=== PATIENT | male | born 1960 | race Caucasian/White ===

== ENCOUNTER 2019-10-04 10:13 | Day surgery (SDC) | payer BC, SELFPAY ==
[2019-10-02 11:45] LABS: BILIRUBIN,URINE NEGATIVE (NEGATIVE); BLOOD, URINE TRACE (NEGATIVE); CLARITY/URINE CLEAR (CLEAR); COLOR,URINE YELLOW (YELLOW); GLUCOSE,URINE NEGATIVE (NEGATIVE); KETONES,URINE NEGATIVE (NEGATIVE); LEUKOCYTE ESTERASE ,URINE NEGATIVE (NEGATIVE); NITRITE, URINE NEGATIVE (NEGATIVE); PH,URINE 6.5 (5.0-8.0); PROTEIN URINE NEGATIVE (NEGATIVE); UROBILINOGEN,URINE 0.2 (0.2-1.0)
[2019-10-02 11:50] LABS: BASOPHILS % (AUTO) 0.3 % (0.0-2.0); EOSINOPHILS # (AUTO) 0.2 K/uL (0.0-0.4); EOSINOPHILS % (AUTO) 3.7 % (0.0-4.0); HEMATOCRIT 35.7 % (36-54); HEMOGLOBIN 12.2 g/dL (14.0-18.0); LYMPHOCYTES # (AUTO) 0.9 K/uL (1.0-5.5); LYMPHOCYTES % (AUTO) 18.4 % (20.5-51.5); MEAN CORPUSCULAR HEMOGLOBIN 29 pg (27-31); MEAN CORPUSCULAR HGB CONC 34 % (32-36); MEAN CORPUSCULAR VOLUME 85 fL (79.0-98.0); MONOCYTES # (AUTO) 0.3 K/uL (0.0-1.0); MONOCYTES % (AUTO) 6.7 % (1.7-9.3); NEUTROPHILS # (AUTO) 3.5 K/uL (1.8-7.7); NEUTROPHILS % (AUTO) 70.9 % (40.0-70.0); PLATELET COUNT (AUTO) 214 K/uL (130-430); RED BLOOD CELL COUNT(AUTO) 4.19 MIL/uL (4.2-6.2); WHITE BLOOD COUNT (AUTO) 4.9 K/uL (4.8-10.8)
[2019-10-02 12:00] LABS: BACTERIA,URINE None Seen /HPF (None Seen); RBC,URINE 0-3 /HPF (0-3); WBC,URINE 0-3 /HPF (0-3)
[2019-10-02 12:01] LABS: CALCIUM OXALATE CRYSTALS,UR None Seen /HPF (None Seen); CALCIUM PHOSPHATE CRYSTALS,UR None Seen /HPF (None Seen); COARSE GRANULAR CASTS,URINE None Seen /LPF (None Seen); FINE GRANULAR CASTS,URINE None Seen /LPF (None Seen); HYALINE CASTS, URINE None Seen /LPF (None Seen); MUCUS,URINE None Seen /LPF (None Seen); OTHER CASTS, URINE None Seen /LPF (None Seen); OTHER CRYSTALS,URINE None Seen /HPF (None Seen); TRICHOMONAS,URINE None Seen /HPF (None Seen); TRIPLE PHOSPHATE CRYSTAL,UR None Seen /HPF (None Seen); URIC ACID CRYSTALS,URINE None Seen /HPF (None Seen); URINE AMORPHOUS PHOSPHATES None Seen /HPF (None Seen); URINE AMORPHOUS URATE None Seen /HPF (None Seen); WAXY CASTS,URINE None Seen /LPF (None Seen); YEAST,URINE None Seen /HPF (None Seen)
[2019-10-02 12:02] LABS: INR 1.1 (0.80-1.20); PROTHROMBIN TIME 10.8 SECS (9.5-12.5)
[2019-10-02 12:04] LABS: CALCIUM 8.5 mg/dL (8.4-11.0); CREATININE 1.12 mg/dL (0.55-1.30)
[~2019-10-04] VITALS: Ht 175.3 cm; Wt 97.5 kg
[2019-10-04] MEDS ORDERED: LR 1,000 ML IV SCH (13:05)
[2019-10-04] MEDS ORDERED: SEVOFLURANE 15 MIN GAS INH ONE (13:10)
[2019-10-04] MEDS ORDERED: SUCCINYLCHOLINE CHLORIDE 20 MG/ML(QUELICIN) ONE (13:10)
[2019-10-04] MEDS ORDERED: PROPOFOL 200MG/ 20ML VIAL (DIPRIVAN) IV ONE (13:10)
[2019-10-04] MEDS ORDERED: KETOROLAC TROMETHAMINE 30 MG VIAL ONE (13:10)
[2019-10-04] MEDS ORDERED: fentaNYL CITRATE/PF 100 MCG/2 ML AMP ONE (13:10)
[2019-10-04] MEDS ORDERED: LR 1,000 ML IV.SOLN IV ONE (13:10)
[2019-10-04] MEDS ORDERED: NS IRRIG SOLN 5000 ML IR ONE (13:10)
[2019-10-04] MEDS ORDERED: ONDANSETRON HCL 4 MG/2 ML VIAL ONE (13:10)
[2019-10-04] MEDS ORDERED: MIDAZOLAM HCL 5 MG/ML VIAL (VERSED) IV ONE (13:10)
[2019-10-04] MEDS ORDERED: MEPERIDINE HCL/PF 25 MG/ML DISP.SYRIN IVP PRN (13:15)
[2019-10-04] MEDS ORDERED: HYDROmorphone 1 MG INJ. 1 MG/ML AMPUL IVP PRN (13:15)
[2019-10-04] MEDS ORDERED: HYDROmorphone 2 MG/ML VIAL IVP PRN ×2 (13:15)
[2019-10-04 15:40] VITALS: BP_SYST 111
== END 2019-10-04 15:20 | disposition home or self-care (01) ==
LOC: SDS 10:13 → SMU 10:14 → SDS 15:20
PROVIDERS: ATTEND Orthopaedic Surgery
DX: G56.01 Carpal tunnel syndrome, right upper limb (principal); E11.9 Type 2 diabetes mellitus without complications; K21.9 Gastro-esophageal reflux disease without esophagitis; Z79.84 Long term (current) use of oral hypoglycemic drugs; Z98.890 Other specified postprocedural states; Z79.01 Long term (current) use of anticoagulants
CPT/HCPCS: 36415; 64721; 71046; 80048; 81000; 82962; 85025; 85610; 85730; 87086; 93005; J0330; J1885; J2250; J2405; J2704; J3010; J7120; U0002

== ENCOUNTER 2020-01-22 05:35 | Inpatient (IN) | payer BC, SELFPAY ==
[2020-01-16 12:35] LABS: BASOPHILS % (AUTO) 0.7 % (0.0-2.0); EOSINOPHILS # (AUTO) 0.3 K/uL (0.0-0.4); EOSINOPHILS % (AUTO) 7.9 % (0.0-4.0); HEMATOCRIT 34.8 % (36-54); HEMOGLOBIN 11.7 g/dL (14.0-18.0); LYMPHOCYTES # (AUTO) 1.3 K/uL (1.0-5.5); LYMPHOCYTES % (AUTO) 33.5 % (20.5-51.5); MEAN CORPUSCULAR HEMOGLOBIN 29 pg (27-31); MEAN CORPUSCULAR HGB CONC 34 % (32-36); MEAN CORPUSCULAR VOLUME 87 fL (79.0-98.0); MONOCYTES # (AUTO) 0.3 K/uL (0.0-1.0); MONOCYTES % (AUTO) 7.1 % (1.7-9.3); NEUTROPHILS # (AUTO) 1.9 K/uL (1.8-7.7); NEUTROPHILS % (AUTO) 50.8 % (40.0-70.0); PLATELET COUNT (AUTO) 216 K/uL (130-430); RED BLOOD CELL COUNT(AUTO) 3.99 MIL/uL (4.2-6.2); RED CELL DISTRIBUTION WIDTH 14.9 % (9.0-15.0); WHITE BLOOD COUNT (AUTO) 3.8 K/uL (4.8-10.8)
[2020-01-16 12:58] LABS: BILIRUBIN,URINE NEGATIVE (NEGATIVE); BLOOD, URINE NEGATIVE (NEGATIVE); CLARITY/URINE CLEAR (CLEAR); COLOR,URINE YELLOW (YELLOW); GLUCOSE,URINE NEGATIVE (NEGATIVE); KETONES,URINE NEGATIVE (NEGATIVE); LEUKOCYTE ESTERASE ,URINE NEGATIVE (NEGATIVE); NITRITE, URINE NEGATIVE (NEGATIVE); PROTEIN URINE NEGATIVE (NEGATIVE); UROBILINOGEN,URINE 0.2 (0.2-1.0)
[2020-01-16 12:59] LABS: CALCIUM 8.7 mg/dL (8.4-11.0); CREATININE 1.1 mg/dL (0.55-1.30); POTASSIUM 3.8 mmol/L (3.5-5.1)
[2020-01-16 13:00] LABS: ALBUMIN 3.7 g/dL (3.4-4.8); TOTAL BILIRUBIN 0.2 mg/dL (0.0-1.0)
[2020-01-16 13:06] LABS: INR 1.1 (0.80-1.20); PROTHROMBIN TIME 11.5 SECS (9.5-12.5)
[~2020-01-22] VITALS: Ht 175.3 cm; Wt 93.0 kg
[2020-01-22] MEDS ORDERED: CEFAZOLIN SOD 1 GM in D5W 50 ML IV ONE (07:00)
[2020-01-22] MEDS ORDERED: LABETALOL 100 MG/ 20ML VIAL IVP ONE (07:25)
[2020-01-22] MEDS ORDERED: D5/0.45 NS 1,000 ML IV ONE (07:25)
[2020-01-22] MEDS ORDERED: DEXAMETHASONE SOD PHOSPHATE 4 MG/ML VIAL IVP ONE (07:25)
[2020-01-22] MEDS ORDERED: MIDAZOLAM HCL 5 MG/5 ML VIAL IVP ONE (07:25)
[2020-01-22] MEDS ORDERED: SEVOFLURANE 15 MIN GAS INH ONE (07:25)
[2020-01-22] MEDS ORDERED: METOCLOPRAMIDE HCL 10 MG/2 ML VIAL IVP ONE (07:25)
[2020-01-22] MEDS ORDERED: PROPOFOL 200MG/ 20ML VIAL (DIPRIVAN) IV ONE (07:25)
[2020-01-22] MEDS ORDERED: ROPIVACAINE HCL/PF 5 MG/ML 0.5% 30 ML VIAL INFIL ONE (07:25)
[2020-01-22] MEDS ORDERED: HYDROmorphone 2 MG/ML VIAL IVP ONE (07:25)
[2020-01-22] MEDS ORDERED: fentaNYL CITRATE/PF 100 MCG/2 ML AMP IVP ONE (07:25)
[2020-01-22] MEDS ORDERED: TRANEXAMIC ACID 1,000 MG/10 ML VIAL IV ONE (07:25)
[2020-01-22] MEDS ORDERED: ONDANSETRON HCL 4 MG/2 ML VIAL IVP ONE ×2 (07:25→08:45)
[2020-01-22] MEDS ORDERED: LR 1,000 ML IV.SOLN IV ONE (07:25)
[2020-01-22] MEDS ORDERED: KETOROLAC TROMETHAMINE 30 MG VIAL IVP ONE (07:25)
[2020-01-22] MEDS ORDERED: POLYMYXIN 500,000/BACIT.10,000 UNITS in NS IRR 1 L IR ONE (07:26)
[2020-01-22] MEDS ORDERED: BISACODYL 10 MG/SUPPOSITORY RC PRN (07:30)
[2020-01-22] MEDS ORDERED: ACETAMINOPHEN 325 MG TABLET PO PRN (07:30)
[2020-01-22] MEDS ORDERED: BUPR300T55 PO (07:45)
[2020-01-22] MEDS ORDERED: CAT.1 PO (07:45)
[2020-01-22] MEDS ORDERED: ALPR2TAB2 PO (07:45)
[2020-01-22] MEDS ORDERED: HYDR-3609 PO (07:45)
[2020-01-22] MEDS ORDERED: [UNRECOGNIZED DRUG - CODE] (07:45)
[2020-01-22] MEDS ORDERED: COR3.125 PO (07:45)
[2020-01-22] MEDS ORDERED: PARO-63 PO (07:45)
[2020-01-22] MEDS ORDERED: GABA-531 PO (07:45)
[2020-01-22] MEDS ORDERED: ENAL10TA PO (07:45)
[2020-01-22] MEDS ORDERED: ALFU10TA19 PO (07:45)
[2020-01-22] MEDS ORDERED: GLU500 PO (07:45)
[2020-01-22] MEDS ORDERED: LR 1,000 ML IV ONE (08:36)
[2020-01-22] MEDS ORDERED: LABETALOL 100 MG/ 20ML VIAL IVP PRN (08:45)
[2020-01-22] MEDS ORDERED: NALOXONE HCL 0.4 MG/ML AMP (NARCAN) IVP PRN ×2 (08:45)
[2020-01-22] MEDS ORDERED: HYDROmorphone 1 MG INJ. 1 MG/ML AMPUL IVP PRN ×3 (08:45→21:15)
[2020-01-22] MEDS ORDERED: KETOROLAC TROMETHAMINE 30 MG VIAL IM PRN (08:45)
[2020-01-22] MEDS ORDERED: RIVAROXABAN 10 MG TABLET PO ONE (09:00)
[2020-01-22] MEDS ORDERED: CEFAZOLIN 1 GM IVPB PREMIX 50 ML IV SCH (10:00)
[2020-01-22] MEDS ORDERED: HYDROmorphone 1 MG INJ. 1 MG/ML AMPUL IVP ONE (10:15)
[2020-01-22] MEDS ORDERED: HYDROmorphone 1 MG INJ. 1 MG/ML AMPUL ONE (10:34)
[2020-01-22 11:10] VITALS: BP_SYST 113
[2020-01-22] MEDS: MORPHINE SULFATE 10 MG/ML VIAL IM PRN ×2 (15:12→20:34)
[2020-01-22] MEDS: HYDROcodone/ACETAMIN 7.5-325 MG TAB PO PRN (16:16)
[2020-01-22] MEDS: CEFAZOLIN 1 GM IVPB PREMIX 50 ML IV SCH ×2 (16:17→22:35)
[2020-01-22 16:42] VITALS: BP_SYST 143
[2020-01-22] MEDS ORDERED: MORPHINE 4 MG/ML INJ. SYRINGE IVP ONE (18:15)
[2020-01-22 20:00] VITALS: BP_SYST 156
[2020-01-22 20:54] VITALS: BP_SYST 160
[2020-01-22] MEDS ORDERED: LORazepam 2 MG/ML VIAL IVP ONE (21:00)
[2020-01-22] MEDS: GABAPENTIN 300 MG CAPSULE PO SCH (21:17)
[2020-01-22] MEDS: CARVEDILOL 3.125 MG TABLET (COREG) PO SCH (21:17)
[2020-01-22] MEDS: PARoxetine HCL 20 MG TABLET PO SCH (21:17)
[2020-01-22] MEDS: ALPRAZolam 0.25 MG TABLET PO SCH (21:18)
[2020-01-22] MEDS: cloNIDine HCL 0.1 MG TABLET PO SCH (21:18)
[2020-01-22] MEDS: buPROPion HCL 150 MG XL TAB PO SCH (21:30)
[2020-01-22] MEDS: HYDROmorphone 2 MG/ML VIAL IVP PRN (22:35)
[2020-01-23] VITALS (7 sets, daily range): BP systolic 126–157
[2020-01-23] MEDS: HYDROmorphone 2 MG/ML VIAL IVP PRN ×6 (01:55→19:53)
[2020-01-23] MEDS: metFORMIN HCL 500 MG TABLET PO SCH ×2 (08:06→17:48)
[2020-01-23] MEDS: CARVEDILOL 3.125 MG TABLET (COREG) PO SCH ×2 (08:07→21:32)
[2020-01-23] MEDS: cloNIDine HCL 0.1 MG TABLET PO SCH ×2 (08:08→21:31)
[2020-01-23] MEDS: GABAPENTIN 300 MG CAPSULE PO SCH ×4 (08:08→21:31)
[2020-01-23] MEDS: PARoxetine HCL 20 MG TABLET PO SCH ×2 (08:08→21:31)
[2020-01-23] MEDS: LISINOPRIL 20 MG TABLET PO SCH (08:09)
[2020-01-23] MEDS: RIVAROXABAN 10 MG TABLET PO SCH (08:10)
[2020-01-23] MEDS: ALPRAZolam 0.25 MG TABLET PO SCH ×3 (08:11→17:48)
[2020-01-23] MEDS: HYDROcodone/ACETAMIN 7.5-325 MG TAB PO SCH ×4 (08:15→23:57)
[2020-01-23] MEDS: buPROPion HCL 150 MG XL TAB PO SCH (08:22)
[2020-01-24] VITALS: BP_SYST 152
[2020-01-24] MEDS: ALPRAZolam 0.25 MG TABLET PO SCH ×5 (01:08→20:53)
[2020-01-24] MEDS: HYDROcodone/ACETAMIN 7.5-325 MG TAB PO PRN (06:35)
[2020-01-24 08:00] VITALS: BP_SYST 140
[2020-01-24] MEDS: CARVEDILOL 3.125 MG TABLET (COREG) PO SCH ×2 (08:50→20:50)
[2020-01-24] MEDS: buPROPion HCL 150 MG XL TAB PO SCH (08:50)
[2020-01-24] MEDS: GABAPENTIN 300 MG CAPSULE PO SCH ×4 (08:50→20:50)
[2020-01-24] MEDS: cloNIDine HCL 0.1 MG TABLET PO SCH ×2 (08:51→20:50)
[2020-01-24] MEDS: PARoxetine HCL 20 MG TABLET PO SCH ×2 (08:51→20:52)
[2020-01-24] MEDS: LISINOPRIL 20 MG TABLET PO SCH (08:51)
[2020-01-24] MEDS: RIVAROXABAN 10 MG TABLET PO SCH (08:52)
[2020-01-24] MEDS: HYDROcodone/ACETAMIN 7.5-325 MG TAB PO SCH ×4 (09:00→20:52)
[2020-01-24] MEDS: metFORMIN HCL 500 MG TABLET PO SCH ×2 (09:04→17:23)
[2020-01-24] MEDS: HYDROmorphone 2 MG/ML VIAL IVP PRN ×2 (10:05→15:15)
[2020-01-24 12:30] LABS: BASOPHILS % (AUTO) 0.3 % (0.0-2.0); EOSINOPHILS # (AUTO) 0.1 K/uL (0.0-0.4); EOSINOPHILS % (AUTO) 0.5 % (0.0-4.0); HEMATOCRIT 30.6 % (36-54); HEMOGLOBIN 10.4 g/dL (14.0-18.0); LYMPHOCYTES # (AUTO) 1.5 K/uL (1.0-5.5); LYMPHOCYTES % (AUTO) 12.4 % (20.5-51.5); MEAN CORPUSCULAR HEMOGLOBIN 30 pg (27-31); MEAN CORPUSCULAR HGB CONC 34 % (32-36); MEAN CORPUSCULAR VOLUME 87 fL (79.0-98.0); MONOCYTES # (AUTO) 1.1 K/uL (0.0-1.0); MONOCYTES % (AUTO) 9.4 % (1.7-9.3); NEUTROPHILS # (AUTO) 9.3 K/uL (1.8-7.7); NEUTROPHILS % (AUTO) 77.4 % (40.0-70.0); PLATELET COUNT (AUTO) 280 K/uL (130-430); RED BLOOD CELL COUNT(AUTO) 3.51 MIL/uL (4.2-6.2); RED CELL DISTRIBUTION WIDTH 14.2 % (9.0-15.0)
[2020-01-24 12:33] LABS: CALCIUM 9.2 mg/dL (8.4-11.0); CREATININE 0.99 mg/dL (0.55-1.30); POTASSIUM 3.8 mmol/L (3.5-5.1)
[2020-01-24 12:38] LABS: ALBUMIN 3.7 g/dL (3.4-4.8); TOTAL BILIRUBIN 0.6 mg/dL (0.0-1.0)
[2020-01-24 13:06] VITALS: BP_SYST 115
[2020-01-24 16:00] VITALS: BP_SYST 116
[2020-01-24 19:00] VITALS: BP_SYST 120
[2020-01-24 20:00] VITALS: BP_SYST 120
[2020-01-24] MEDS ORDERED: BISACODYL 5 MG TABLET.DR (DULCOLAX) PO ONE (22:00)
[2020-01-25 01:10] VITALS: BP_SYST 94
[2020-01-25] MEDS: HYDROmorphone 2 MG/ML VIAL IVP PRN ×4 (04:54→18:49)
[2020-01-25 08:00] VITALS: BP_SYST 120
[2020-01-25] MEDS: buPROPion HCL 150 MG XL TAB PO SCH (08:30)
[2020-01-25] MEDS: metFORMIN HCL 500 MG TABLET PO SCH ×2 (08:30→17:34)
[2020-01-25] MEDS: GABAPENTIN 300 MG CAPSULE PO SCH ×3 (08:30→17:34)
[2020-01-25] MEDS: PARoxetine HCL 20 MG TABLET PO SCH (08:30)
[2020-01-25] MEDS: HYDROcodone/ACETAMIN 7.5-325 MG TAB PO SCH ×3 (08:31→17:35)
[2020-01-25] MEDS: cloNIDine HCL 0.1 MG TABLET PO SCH (08:31)
[2020-01-25] MEDS: ALPRAZolam 0.25 MG TABLET PO SCH ×3 (08:32→17:35)
[2020-01-25] MEDS: LISINOPRIL 20 MG TABLET PO SCH (08:32)
[2020-01-25] MEDS: CARVEDILOL 3.125 MG TABLET (COREG) PO SCH (08:32)
[2020-01-25] MEDS: RIVAROXABAN 10 MG TABLET PO SCH (08:33)
[2020-01-25 12:15] VITALS: BP_SYST 108
[2020-01-25 14:32] VITALS: BP_SYST 108
[2020-01-25 16:10] VITALS: BP_SYST 114
== END 2020-01-25 20:00 | disposition home or self-care (01) | DRG 470 ==
LOC: SMU 05:35 → EDSTATUS 17:52
PROVIDERS: ADMIT Orthopaedic Surgery; ATTEND Orthopaedic Surgery
PROC: 30233N1 Transfusion of Nonautologous Red Blood Cells into Peripheral Vein, Percutaneous Approach (ICD-10-PCS; 2020-01-22)
PROC: 0SRD0J9 Replacement of Left Knee Joint with Synthetic Substitute, Cemented, Open Approach (ICD-10-PCS; principal; 2020-01-22 07:30)
DX: M17.12 Unilateral primary osteoarthritis, left knee (principal); E11.9 Type 2 diabetes mellitus without complications; G89.29 Other chronic pain; I10 Essential (primary) hypertension; Z96.659 Presence of unspecified artificial knee joint; G56.00 Carpal tunnel syndrome, unspecified upper limb; Z20.828 Contact with and (suspected) exposure to other viral communicable diseases
CPT/HCPCS: 36415; 73521; 80053; 81003; 82947-TC; 83036; 85025; 85610-TC; 85730-TC; 86886; 86900; 86901; 86920; 87081; 88307; 88311; 97110-GP; 97112-GP; 97116-GP; 97163; 97530-GP; C1713; J0690; J1100; J1170; J1885; J2250; J2270; J2405; J2704; J2765; J3010; J3490; J7030; J7060; J7120; P9021; U0003-CS